=== PATIENT | male | born 2000 | race Caucasian/White ===

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

== ENCOUNTER 2019-01-15 | Emergency (ER) | payer OTHER ==
[2019-01-15] MEDS ORDERED: NS 0.9% 1000 ML** 1,000 ML IV ONE (00:07)
[2019-01-15] MEDS ORDERED: Metoclopramide IV* 5 MG/ML 2 ML VIAL IV SLOW PU ONE (00:07)
[2019-01-15] MEDS ORDERED: Pantoprazole IV* 40 MG IV ONE (00:07)
--- NOTE | 2019-01-15 00:17 | ED ---
Substance Abuse/Use - HPI Summary HPI Summary: This patient is a 19 year old M brought in by EMS with a chief complaint of EtOH intoxication since just [employer] [employer]. The patient was at a libertarian on [facility]. He was given Narcan en route, because his pupils were dilated upon arrival, but it did not alleviate any symptoms. The patient had an episode of emesis while in the ED. Level 5 caveat due to intoxication. - History Of Current Complaint Chief Complaint: EDSubstanceAbuse Stated Complaint: ETOH Time Seen by Provider: 01/15/19 00:07 Hx Obtained From: EMS Hx From Patient Unobtainable Due To: Other - level 5 caveat Associated Signs And Symptoms: Vomiting - Allergies/Home Medications Allergies/Adverse Reactions: Allergies Allergy/AdvReac Type Severity Reaction Status Date / Time No Known Allergies Allergy Verified 07/17/18 04:04 Home Medications: Home Medications Unobtainable 01/15/19 [History Confirmed 01/15/19] PMH/Surg Hx/FS Hx/Imm Hx Endocrine/Hematology History: Denies: Hx Diabetes Cardiovascular History: Denies: Hx Hypertension - Surgical History Surgery Procedure, Year, and Place: none Infectious Disease History: Denies: Traveled Outside the [place] in Last 30 Days - Family History Known Family History: Positive: Non-Contributory Family History: LEV 5 CAV: FHx is limited because patient is intoxicated - Social History Alcohol Use: Occasionally Hx Substance Use: No Substance Use Type: Reports: None Substance Use Comment - Amount & Last Used: denies Hx Tobacco Use: No Smoking Status (MU): Never Smoked Tobacco Review of Systems - ROS Summary Review of Systems Summary: ROS limited due to patient's intoxication, level 5 caveat. Positive: Vomiting All Other Systems Reviewed And Are Negative: No Physical Exam - Summary Physical Exam Summary: VITAL SIGNS: Reviewed. GENERAL: Patient is a well-developed and nourished male who is lying in the position in the stretcher. Patient is not in any acute respiratory distress. He responds to loud verbal stimuli. HEAD AND FACE: No signs of trauma. No ecchymosis, hematomas or skull depressions. No sinus tenderness. EYES: PERRLA, EOMI x 2, No injected conjunctiva, no nystagmus. EARS: Hearing grossly intact. Ear canals and tympanic membranes are within normal limits. MOUTH: Oropharynx within normal limits. NECK: Supple, trachea is midline, no adenopathy, no JVD, no carotid bruit, no c- spine tenderness, neck with full ROM. CHEST: Symmetric, no tenderness at palpation LUNGS: Clear to auscultation bilaterally. No wheezing or crackles. CVS: Regular rate and rhythm, S1 and S2 present, no murmurs or gallops appreciated. ABDOMEN: Soft, non-tender. No signs of distention. No rebound no guarding, and no masses palpated. Bowel sounds are normal. EXTREMITIES: FROM in all major joints, no edema, no cyanosis or clubbing. NEURO: Alert and oriented x 3. No acute neurological deficits. Speech is normal and follows commands. SKIN: Dry and warm Level 5 caveat due to intoxication. Triage Information Reviewed: Yes Vital Signs Reviewed: Yes Completion Of Physical Exam Limited Due To: Level 5 - drunk Course/Dx - Course Course Of Treatment: This patient is a 19 year old M brought in by EMS with a chief complaint of EtOH intoxication since just [place] [employer]. The patient was at a libertarian on [facility]. He was given Narcan en route, because his pupils were dilated upon arrival, but it did not alleviate any symptoms. The patient had an episode of emesis while in the ED. Level 5 caveat due to intoxication. In the ED course the patient was given Metocloperamide, Pantoprazole, and IV fluids. Patient will be discharged with follow up from [facility] physician referral. The patient is agreeable with this plan. - Diagnoses Provider Diagnoses: Alcohol intoxication Discharge - Sign-Out/Discharge Documenting (check all that apply): Patient Departure - discharge Patient Received Moderate/Deep Sedation with Procedure: No - Discharge Plan Condition: Stable Disposition: HOME Patient Education Materials: Alcohol Intoxication (ED) Referrals: [facility]YSICIAN REFERRAL [Outside] - 2 Days Additional Instructions: RETURN TO THE EMERGENCY DEPARTMENT FOR CHANGING OR WORSENING SYMPTOMS. FOLLOW UP WITH [facility] PHYSICIAN REFERRAL IN 1-2 DAYS. - Attestation Statements Document Initiated by Scribe: Yes Documenting Scribe: Jorden Mcmullen Provider For Whom Trueibsienna is Documenting (Include Credential): Alice Santamaria MD Scribe Attestation: Jorden Huerta, scribed for Alice Santamaria MD on 01/15/19 at 0601. Status of Scribe Document: Ready
[2019-01-15 06:10] VITALS: BP 112/51
== END 2019-01-15 06:10 | disposition home or self-care (01) ==
LOC: ED
DX: F10.129 Alcohol abuse with intoxication, unspecified (principal)
CPT/HCPCS: 96361; 96374; 96375; 99283; J2765

== ENCOUNTER 2019-09-09 01:18 | Emergency (ER) | payer OTHER ==
--- NOTE | 2019-09-09 01:26 | ED ---
Substance Abuse/Use - HPI Summary HPI Summary: This patient is a 19 year old male brought in by EMS for ETOH intoxication. LEVEL 5 CAVEAT: HPI LIMITED DUE TO PATIENT INTOXICATION - History Of Current Complaint Stated Complaint: ETOH PER EMS Time Seen by Provider: 09/09/19 01:22 Hx Obtained From: EMS Hx From Patient Unobtainable Due To: Altered Mental Status Overdose Characteristics: Oral - Allergies/Home Medications Allergies/Adverse Reactions: Allergies Allergy/AdvReac Type Severity Reaction Status Date / Time No Known Allergies Allergy Verified 07/17/18 04:04 PMH/Surg Hx/FS Hx/Imm Hx Endocrine/Hematology History: Denies: Hx Diabetes Cardiovascular History: Denies: Hx Hypertension - Surgical History Surgery Procedure, Year, and Place: none - Family History Known Family History: Positive: Non-Contributory Family History: LEV 5 CAV: FHx is limited because patient is intoxicated - Social History Alcohol Use: Occasionally Hx Substance Use: No Substance Use Type: Reports: None Substance Use Comment - Amount & Last Used: denies Hx Tobacco Use: No Smoking Status (MU): Never Smoked Tobacco - Additional Comments History Additional Comments: LEVEL 5 CAVEAT: PMH LIMITED DUE TO PATIENT INTOXICATION Review of Systems - ROS Summary Review of Systems Summary: LEVEL 5 CAVEAT: ROS LIMITED DUE TO PATIENT INTOXICATION Psychological: Other - ETOH intoxication All Other Systems Reviewed And Are Negative: No Physical Exam - Summary Physical Exam Summary: ppearance: Well-appearing, Well-nourished, lying in bed comfortably Skin: Warm, dry, no obvious rash Eyes: sclera anicteric, no conjunctival pallor ENT: mucous membranes moist, pharynx appears normal Neck: Supple, nontender Respiratory: Clear to auscultation, no signs of respiratory distress Cardiovascular: Normal S1, S2. No murmurs. Normal distal pulses in tibial and radial bilaterally. Abdomen: Soft, nontender, normal active bowel sounds present Musculoskeletal: Normal, Strength/ROM Intact Neurological: Responds to voice, opens eyes on command. Triage Information Reviewed: Yes Vital Signs On Initial Exam: Temp Pulse Resp BP Pulse Ox 97.4 F 82 16 102/51 97 09/09/19 01:56 09/09/19 02:46 09/09/19 01:56 09/09/19 02:46 09/09/19 02:46 Vital Signs Reviewed: Yes Procedures - Sedation Patient Received Moderate/Deep Sedation with Procedure: No Course/Dx - Course Course Of Treatment: This patient is a 19 year old male brought in by EMS for ETOH intoxication. The patient became sober and able to go home. A plan for discharge was discussed with the patient and he was agreeable with this plan. - Diagnoses Provider Diagnoses: Alcohol intoxication Discharge ED - Sign-Out/Discharge Documenting (check all that apply): Patient Departure - Discharge - Discharge Plan Condition: Improved Disposition: HOME Patient Education Materials: Alcohol Intoxication (ED) Referrals: [facility] [Outside] - If Needed No Primary Care Phys,NOPCP [Medical Doctor] - - Billing Disposition and Condition Condition: IMPROVED Disposition: Home - Attestation Statements Document Initiated by Yessica: Yes Documenting Scribe: Toni Choudhury Provider For Whom Yessica is Documenting (Include Credential): Vincent Guaman MD Scribe Attestation: Toni Huerta, scribed for Vincent Guaman MD on 09/13/19 at 1811. Scribe Documentation Reviewed: Yes Provider Attestation: The documentation as recorded by the Toni guerreor accurately reflects the service I personally performed and the decisions made by , Vincent Guaman MD Status of Scribe Document: Viewed
[2019-09-09 07:28] VITALS: BP 132/80
== END 2019-09-09 07:20 | disposition home or self-care (01) ==
LOC: ED 01:18
DX: F10.929 Alcohol use, unspecified with intoxication, unspecified (principal)
CPT/HCPCS: 36415; 80320; 99283; G0480

== ENCOUNTER 2020-01-20 02:02 | Emergency (ER) | payer OTHER ==
[2020-01-20] MEDS ORDERED: NS 0.9% 1000 ML** 1,000 ML IV ONE (02:47)
[2020-01-20] MEDS ORDERED: Ondansetron INJ* 2 MG/ML VIAL IV ONE ×2 (02:48→08:23)
[2020-01-20 03:14] LABS: ABS Eosinophils 0.1 10^3/ul (0-0.6); ABS Monocytes 0.3 10^3/ul (0-0.8); ABS Neutrophils 7.2 10^3/ul (1.5-7.7); Eosinophil % 1.2 %; Hematocrit 47 % (42-52); Hemoglobin 16.1 g/dL (14.0-18.0); Mean Corpuscular HGB Conc 34 g/dL (31-36); Mean Corpuscular Hemoglobin 30 pg (27-31); Mean Corpuscular Volume 87 fL (80-94); Mean Platelet Volume 8.5 fL (7.4-10.4); Nucleated Red Blood Cells % 0.1; Platelet Count 211 10^3/uL (150-450); Red Blood Count 5.42 10^6 /uL (4.18-5.48); Red Cell Distribution Width 14 % (10-15); White Blood Count 8.7 10^3/uL (3.5-10.8)
--- NOTE | 2020-01-20 03:22 | ED ---
Substance Abuse/Use - HPI Summary HPI Summary: Patient is a 20 year-old male arriving via ambulance to [facility] for alcohol intoxication this morning. Nonsmoker, occasional alcohol use, no substance use. LEVEL 5 CAVEAT SECONDARY TO ALCOHOL INTOXICATION. History obtained from EMS. - History Of Current Complaint Chief Complaint: EDSubstanceAbuse Stated Complaint: ETOH PER EMS Time Seen by Provider: 01/20/20 02:14 Hx Obtained From: EMS Hx From Patient Unobtainable Due To: Other - Level 5 caveat, alcohol intoxication - Allergies/Home Medications Allergies/Adverse Reactions: Allergies Allergy/AdvReac Type Severity Reaction Status Date / Time No Known Allergies Allergy Verified 07/17/18 04:04 Home Medications: Home Medications Unobtainable 01/15/19 [History Confirmed 01/15/19] PMH/Surg Hx/FS Hx/Imm Hx Endocrine/Hematology History: Denies: Hx Diabetes Cardiovascular History: Denies: Hx Hypertension - Surgical History Surgical History: Unable to Obtain/Confirm - Level 5 caveat, alcohol intoxication Infectious Disease History: Unable to Obtain/Confirm Infectious Disease History: Denies: Traveled Outside the [place] in Last 30 Days - Family History Family History: Level 5 caveat, alcohol intoxication - Social History Alcohol Use: Occasionally Hx Substance Use: No Substance Use Type: Reports: None Substance Use Comment - Amount & Last Used: denies Hx Tobacco Use: No Smoking Status (MU): Never Smoked Tobacco - Additional Comments History Additional Comments: past medical history unknown, level 5 caveat secondary to alcohol intoxication Review of Systems - ROS Summary Review of Systems Summary: Home Medications unknown. Positive: Other - alcohol intoxication All Other Systems Reviewed And Are Negative: No - Comments Additional Review of Systems Comments: LEVEL 5 CAVEAT SECONDARY TO ALCOHOL INTOXICATION. Physical Exam - Summary Physical Exam Summary: General: Well-developed, Well-nourished male. No acute distress. HEENT: Normocephalic, Atraumatic. Eyes: Conjuctiva normal, PERRL. Oropharynx: Clear, mucous membranes moist, (-) exudates. Neck: Soft, FROM, (-) lymphadenopathy, (-) thyromegaly, (-) JVD. Cardiovascular: Normal sinus rhythm, (-) murmur. Lungs: Clear to auscultation bilaterally (-) wheezes, (-) rales, (-) rhonchi. Abdomen: Soft, non-tender, non-distended, (-) organomegaly, normal bowel sounds. Back: (-) CVA tenderness Extremities: No edema. Skin: Warm, dry, (-) rash. Neuro: Asleep, unarousable, lethargic. Psychiatric: Deferred. Triage Information Reviewed: Yes Vital Signs On Initial Exam: Initial Vitals Temp Pulse Resp BP Pulse Ox 97.7 F 82 16 134/76 96 01/20/20 02:29 01/20/20 02:29 01/20/20 02:29 01/20/20 02:01/20/20 02:29 Vital Signs Reviewed: Yes Completion Of Physical Exam Limited Due To: Level 5 - alcohol intoxication Procedures - Sedation Patient Received Moderate/Deep Sedation with Procedure: No Diagnostics - Vital Signs Vital Signs Temp Pulse Resp BP Pulse Ox 01/20/20 02: 97.7 F 82 16 134/76 96 - Laboratory Lab Results: Lab Results 01/20/20 Range/Units 03:06 WBC 8.7 (3.5-10.8) 10^3/uL RBC 5.42 (4.18-5.48) 10^6 /uL Hgb 16.1 (14.0-18.0) g/dL Hct 47 (42-52) % MCV 87 (80-94) fL MCH 30 (27-31) pg MCHC 34 (31-36) g/dL RDW 14 (10-15) % Plt Count 211 (150-450) 10^3/uL MPV 8.5 (7.4-10.4) fL Neut % (Auto) 82.9 % Lymph % (Auto) 12.0 % Valencia % (Auto) 3.4 % Eos % (Auto) 1.2 % Baso % (Auto) 0.5 % Absolute Neuts (auto) 7.2 (1.5-7.7) 10^3/ul Absolute Lymphs (auto) 1.0 (1.0-4.8) 10^3/ul Absolute Monos (auto) 0.3 (0-0.8) 10^3/ul Absolute Eos (auto) 0.1 (0-0.6) 10^3/ul Absolute Basos (auto) 0.0 (0-0.2) 10^3/ul Absolute Nucleated RBC 0.0 10^3/ul Nucleated RBC % 0.1 Result Diagrams: 01/20/20 03:06 01/20/20 03:06 Lab Statement: Any lab studies that have been ordered have been reviewed, and results considered in the medical decision making process. Course/Dx - Course Course Of Treatment: 20-year-old male with acute alcohol intoxication. Arrives by EMS. Patient given IV fluids and Zofran. He is lethargic and obviously intoxicated upon arrival. No signs of trauma. But alcohol level 219. Patient signout changes shift awaiting sobriety and reevaluation. . - Diagnoses Provider Diagnoses: Alcohol intoxication Discharge ED - Sign-Out/Discharge Documenting (check all that apply): Sign-Out Patient Signing out patient TO: Boby Oliveros - Patient is a sign-out to Dr. Boby Oliveros MD, at change of shift at 0700 on 01/20/20, pending sobriety and discharge. - Discharge Plan Condition: Stable Patient Education Materials: Alcohol Intoxication (ED) Referrals: [facility] - Rg [Primary Care Provider] - 3 Days Additional Instructions: Please follow up with your primary care physician within three days. Please return to ED for any new or worsening symptoms. - Billing Disposition and Condition Condition: STABLE - Attestation Statements Document Initiated by Scribe: Yes Documenting Scribe: Olivia Ashraf Provider For Whom Yessica is Documenting (Include Credential): Tita Gallo MD Scribe Attestation: Olivia Huerta, scribed for Tita Gallo MD on 01/20/20 at 0650. Scribe Documentation Reviewed: Yes Provider Attestation: The documentation as recorded by the Olivia guerrero accurately reflects the service I personally performed and the decisions made by me, Tita Gallo MD Status of Scribe Document: Viewed
[2020-01-20 03:29] LABS: ALT 10 U/L (7-52); AST 14 U/L (13-39); Albumin 4.4 g/dL (3.2-5.2); Albumin/Globulin Ratio 1.8 (1-3); Alkaline Phosphatase 81 U/L (34-104); Anion Gap 8 mmol/L (2-11); BUN/Creatinine Ratio 10.3 (8-20); Blood Urea Nitrogen 9 mg/dL (6-24); CO2 Carbon Dioxide 25 mmol/L (22-32); Chloride 109 mmol/L (101-111); EGFR Non-African American 110.8 (>60); Globulin 2.4 g/dL (2-4); Glucose 104 mg/dL (70-100); Potassium 3.6 mmol/L (3.5-5.0); Sodium 142 mmol/L (135-145); Total Protein 6.8 g/dL (6.4-8.9)
[2020-01-20 03:51] LABS: Acetaminophen < 15 mcg/mL; Alcohol 219 mg/dL (<10); Salicylate < 2.50 mg/dL (<30)
--- NOTE | 2020-01-20 07:41 | ED ---
Progress - Progress Note Progress Note: Receiving sign-out from Dr. Gallo at shift change 0700. Patient was ready to go home. Patient is talking, says he drank a lot last night, he is attempting to get a ride from a friend. Patient clinically sober at this time. Patient ambulates without difficulty. Plan for discharge was discussed with the patient and he understands and agrees. Course/Dx - Course Course Of Treatment: Receiving sign-out from Dr. Gallo at shift change 0700. Patient was ready to go home. Patient is talking, says he drank a lot last night, he is attempting to get a ride from a friend. Patient clinically sober at this time. Patient ambulates without difficulty. Plan for discharge was discussed with the patient and he understands and agrees. - Diagnoses Provider Diagnoses: Alcohol intoxication Discharge ED - Sign-Out/Discharge Documenting (check all that apply): Patient Departure - Discharge, Receiving Sign-Out Receiving patient FROM: Tita Gallo - Discharge Plan Condition: Stable Disposition: HOME Patient Education Materials: Alcohol Intoxication (ED) Referrals: [facility] - [facility]g [Primary Care Provider] - 3 Days Additional Instructions: Please follow up with your primary care physician within three days. Please return to ED for any new or worsening symptoms. - Billing Disposition and Condition Condition: STABLE Disposition: Home - Attestation Statements Document Initiated by Yessica: Yes Documenting Scribe: Toni Choudhury Provider For Whom Yessica is Documenting (Include Credential): Boby Oliveros MD Scribe Attestation: Toni Huerta, scribed for Boby Oliveros MD on 01/20/20 at 1318. Scribe Documentation Reviewed: Yes Provider Attestation: The documentation as recorded by the Toni guerrero accurately reflects the service I personally performed and the decisions made by me, Boby Oliveros MD Status of Scribe Document: Viewed
[2020-01-20 07:58] VITALS: BP 118/92
== END 2020-01-20 09:06 | disposition home or self-care (01) ==
LOC: ED 02:02
DX: F10.129 Alcohol abuse with intoxication, unspecified (principal)
CPT/HCPCS: 36415; 80053; 80320; 80329; 83605; 85025; 96361; 96374; 96376; 99284; G0480; J2405